=== PATIENT | female | born 1980 | race Caucasian/White ===

== ENCOUNTER → 2016-06-09 | Outpatient (CLI) | payer OTHER ==
--- NOTE | 2016-06-09 10:58 | REP ---
LEFT SHOULDER, THREE VIEWS: There is no acute fracture or dislocation. The joint spaces are normal in appearance. IMPRESSION: There is no acute fracture or dislocation. Signed by Juan Sanchez MD 06/09/2016 11:09 A
== END ==
LOC: M WUC 10:03
PROVIDERS: ATTEND Physician Assistant
DX: S43.402A Unspecified sprain of left shoulder joint, initial encounter (principal); X58.XXXA Exposure to other specified factors, initial encounter; Y93.9 Activity, unspecified; Y92.9 Unspecified place or not applicable; Y99.8 Other external cause status

== ENCOUNTER 2020-09-20 15:36 | Emergency (ER) | payer OTHER ==
[~2020-09-20] VITALS: Ht 170.2 cm; Wt 64.7 kg
[2020-09-20 16:07] LABS: BASO % 0.4 % (0.0-1.0); EOS # 0.1 10^3/uL (0.0-0.5); EOS % 1.8 % (0.0-3.0); HEMATOCRIT 40.7 % (36.0-47.0); HEMOGLOBIN 13.3 g/dl (12.0-15.5); LYMPH # 1.6 10^3/uL (1.5-5.0); LYMPH % 31.6 % (24.0-44.0); MEAN CORPUSCULAR HEMOGLOBIN 31.7 pg (27.0-33.0); MEAN CORPUSCULAR HGB CONC 32.7 g/dl (32.0-36.5); MEAN CORPUSCULAR VOLUME 97.1 fl (80.0-96.0); MONO # 0.4 10^3/uL (0.0-0.8); MONO % 7.7 % (2.0-8.0); NEUTROPHILS % 58.3 % (36.0-66.0); PLATELET COUNT, AUTOMATED 226 10^3/uL (150-450); RED BLOOD COUNT 4.19 10^6/uL (4.00-5.40); WHITE BLOOD COUNT 5.1 10^3/uL (4.0-10.0)
[2020-09-20 16:47] LABS: ALBUMIN 4.1 GM/DL (3.2-5.2); ALT/SGPT 21 U/L (12-78); BILIRUBIN,DIRECT 0.1 MG/DL (0.0-0.2); BILIRUBIN,TOTAL 0.4 MG/DL (0.2-1.0); BLOOD UREA NITROGEN 15 MG/DL (7-18); CALCIUM LEVEL 9.3 MG/DL (8.5-10.1); CARBON DIOXIDE LEVEL 29 MEQ/L (21-32); CHLORIDE LEVEL 109 MEQ/L (98-107); GLOMERULAR FILTRATION RATE > 60.0 (>60); GLUCOSE, FASTING 76 MG/DL (70-100); LIPASE 94 U/L (73-393); POTASSIUM SERUM 3.9 MEQ/L (3.5-5.1); SODIUM LEVEL 140 MEQ/L (136-145); TOTAL PROTEIN 7.1 GM/DL (6.4-8.2)
[2020-09-20] MEDS ORDERED: ONDANSETRON 4 MG ORAL DISINTEGRATING TAB PO ONE (19:10)
--- NOTE | 2020-09-20 19:35 | REP ---
INDICATION: right pelvic pain; ovarian cyst vs torsion. COMPARISON: None. TECHNIQUE: Transabdominal and transvaginal scanning were performed. FINDINGS: Uterine dimensions are mildly enlarged at 9.1 x 5.2 x 6.2 cm. Endometrial echo is 1.2 cm thick and centrally placed. No free fluid is seen in the cul-de-sac. Visualized bladder osborne are smooth. There is a small myometrial calcification focally in the right lateral uterus. No free fluid is noted. The right ovary has dimensions of 2.4 x 2.3 x 2.4 cm. It's Doppler flow is normal with a resistive index of 0.4. The left ovary dimensions are normal as well at 3.9 x 2.7 x 2.4 cm. It's Doppler flow was normal with resistive index of 0.46. IMPRESSION: Mildly enlarged uterus, small focal myometrial calcification consistent with small fibroid. Otherwise normal pelvic sonography. <Electronically signed by Mohit Davenport > 09/20/201930
[2020-09-20] MEDS ORDERED: ISOVUE-370 76% 100ML VIAL As Ordered ONE (20:19)
--- NOTE | 2020-09-20 21:24 | REPVR ---
PROCEDURE INFORMATION: Exam: CT Abdomen And Pelvis With Contrast Exam date and time: 09/20/2020 8:38 PM Age: 40 years old Clinical indication: Abdominal pain; Localized; Right lower quadrant (rlq); Additional info: Rlq pain; R/O appy TECHNIQUE: Imaging protocol: Computed tomography of the abdomen and pelvis with contrast. Radiation optimization: All CT scans at this facility use at least one of these dose optimization techniques: automated exposure control; mA and/or kV adjustment per patient size (includes targeted exams where dose is matched to clinical indication); or iterative reconstruction. Contrast material: ISOVUE 370; Contrast volume: 100 ml; Contrast route: INTRAVENOUS (IV); COMPARISON: CT ABD PELVIS W/O FOL BY WIT 11/09/2014 11:30 AM FINDINGS: Liver: There is a diffuse decrease in hepatic parenchymal density, consistent with steatosis. Gallbladder and bile ducts: The gallbladder is incompletely distended. This is most likely related to incomplete fasting. Clinical correlation to exclude gallbladder pathology suggested. Pancreas: Normal. No ductal dilation. Spleen: Normal. No splenomegaly. Adrenal glands: Normal. No mass. Kidneys and ureters: Normal. No hydronephrosis. Stomach and bowel: Unremarkable. No obstruction. No mucosal thickening. Appendix: The appendix is within normal limits. There is no appendiceal enlargement, periappendiceal inflammatory changes or abscess. Intraperitoneal space: Unremarkable. No free air. No significant fluid collection. Vasculature: Unremarkable. No abdominal aortic aneurysm. Lymph nodes: Unremarkable. No enlarged lymph nodes. Urinary bladder: Unremarkable as visualized. Reproductive: Collapsing corpus luteal cyst left ovary. Bones/joints: Unremarkable. No acute fracture. Soft tissues: Unremarkable. IMPRESSION: 1. There is a diffuse decrease in hepatic parenchymal density, consistent with steatosis. 2. The gallbladder is incompletely distended. This is most likely related to incomplete fasting. Clinical correlation to exclude gallbladder pathology suggested. 3. The appendix is within normal limits. There is no appendiceal enlargement, periappendiceal inflammatory changes or abscess. 4. No acute findings. Electronically signed by: Lance Crawley On 09/20/2020 21:23:48 PM
[2020-09-20] MEDS ORDERED: ONDA4TAB6 PO (21:57)
[2020-09-20] MEDS ORDERED: SUCR1SS PO (21:57)
[2020-09-20] MEDS ORDERED: SUCRALFATE 1 GM TAB PO ONE (22:05)
[2020-09-20 22:16] VITALS: BP 126/72
== END 2020-09-20 22:26 | disposition home or self-care (01) ==
LOC: M ED 15:36
DX: D25.9 Leiomyoma of uterus, unspecified (principal); K27.9 Peptic ulcer, site unspecified, unspecified as acute or chronic, without hemorrhage or perforation
CPT/HCPCS: 74177; 76856; 80048; 80076; 81001; 83690; 85025; 93976; 99284; Q0162; Q9967